=== PATIENT | female | born 1985 | race African-American/Black ===

== ENCOUNTER 2023-01-28 06:06 | Emergency (ER) | payer MEDICAID ==
[~2023-01-28] VITALS: Ht 170.2 cm; Wt 105.0 kg
[2023-01-28 06:20] VITALS: BP 133/80; PULSE 80; RESP 14; TEMP 98.4; O2SAT 99
[2023-01-28] MEDS ORDERED: DIPH25CA83 PO ×3 (07:42→10:26)
[2023-01-28] MEDS ORDERED: CLIN-194 PO ×3 (07:42→10:26)
== END 2023-01-28 08:08 | disposition home or self-care (01) ==
LOC: ER 06:06
DX: L03.114 Cellulitis of left upper limb (principal)
CPT/HCPCS: 99281; 99283